=== PATIENT | male | born 1985 | race Caucasian/White ===

== ENCOUNTER 2016-06-27 12:10 | Emergency (ER) | payer OTHER ==
[2016-06-27 12:18] VITALS: BP 115/79; PULSE 62; RESP 14; TEMP 98.2; O2SAT 95
--- NOTE | 2016-06-27 14:11 | UCPHY ---
H & P Time Seen by Provider: 06/27/16 14:10 Patient Type: New HPI/ROS: Chief complaint. Leg pain HPI. 31-year-old male with left lower leg pain for 1 week worse the last couple days. Hurts to walk. Unsure of injury. No swelling. The pain is in the anterior kerr and not in the calf. No ankle or knee pain. No similar symptoms previously. No previous injury ROS Constitutional. no fever/chills, no weakness Eyes. no problems with vision ENT. no sore throat, no nasal drainage Cardiovascular. no chest pain Respiratory. no shortness of breath, no cough Abdominal. no abdominal pain, no nausea/vomiting, no diarrhea . no problems urinating MS. Left lower leg pain Skin. no rash Lymph. no swollen glands Neuro. no headache, no dizziness, no difficulty walking or with speech Past Medical/Surgical History: Past medical history significant for [place]-Schl[place]'s disease is child Social History: Single nonsmoker no alcohol Smoking Status: Never smoked Physical Exam: General Appearance: Alert well-developed male mild distress vital signs stable. Eyes: Pupils equal and round no pallor or injection. ENT, Mouth: Mucous membranes are moist. Respiratory: There are no retractions, lungs are clear to auscultation. Cardiovascular: Regular rate and rhythm. Gastrointestinal: Abdomen is soft and nontender, no masses, bowel sounds normal. Neurological: Awake and alert, sensory and motor exams grossly normal. Skin: Warm and dry, no rashes. Musculoskeletal: Neck is supple nontender. Extremities the left anterior tibia area is slightly tender to palpation. There is no swelling deformity bruising or evidence of surface trauma. There is no calf pain. Distal motor vascular sensitivity to be intact Psychiatric: Patient is oriented X 3, there is no agitation. Constitutional: Initial Vital Signs Temperature (C) 36.8 C 06/27/16 12:13 Heart Rate 62 06/27/16 12:13 Respiratory Rate 14 06/27/16 12:13 Blood Pressure 115/79 06/27/16 12:13 O2 Sat (%) 95 06/27/16 12:13 O2 Delivery Mode Room Air Allergies/Adverse Reactions: No Known Allergies Allergy (Unverified 06/27/16 12:18) Home Medications: Medication Instructions Recorded SUMAtriptan PRN 06/27/16 Vitamin C 06/27/16 Medical Decision Making - Diagnostics Imaging: Imaging Impressions Tibia/Fibula X-Ray 06/27/16 12:32 Impression: 1. Negative. No acute fracture. 2. 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 ED Course/Re-evaluation: On re-evaluation patient remained stable. The patient and I discussed imaging study results, treatment plan, criteria for return, importance of follow-up further evaluation. He expresses understanding and agreement Differential Diagnosis: I considered fracture, dislocation, kerr splints, sprain. This would appear to be sprain Departure - Departure Disposition: Home, Routine, Self-Care Clinical Impression: Leg sprain Condition: Good Instructions: Sprain (ED) Additional Instructions: Ice and elevation next 24 hours. Ibuprofen 600 mg every 6 hours for discomfort. Activity as tolerated. Re-evaluation in 4-5 days if not improved Referrals: NONE *PRIMARY CARE P,. [Primary Care Provider] - As per Instructions Braulio Davenport, [Doctor of Osteopathy] - 3-4 days, if not improved Stand Alone Forms: Work Excuse - PQRS PQRS Measurement: 134: Depression screening and followup, PRIME MD-PHQ2 (12 years and older) Over the last 2 weeks, how often have you been bothered by any of the following problems? 1. Feeling down, depressed, or hopeless? 2. Little interest or pleasure in doing things? Patient answered no to both 1 and 2 130: Documentation of medications. Reviewed all patient medications, doses, route and frequency. 226: Do you smoke? No.
== END 2016-06-27 14:44 | disposition home or self-care (01) ==
LOC: CED 12:10
DX: S89.92XA Unspecified injury of left lower leg, initial encounter (principal); X58.XXXA Exposure to other specified factors, initial encounter
CPT/HCPCS: 73590-PO; G0463-PO